=== PATIENT | female | born 1970 | race Caucasian/White ===

== ENCOUNTER 2019-01-29 18:07 | Emergency (ER) | payer OTHER, SELFPAY ==
--- OUTSIDE RECORDS SUMMARY | 2019-01-29 18:08 | XMS REPORT ---
:1970 Author Organization [facility] Address [address] [place] [address] Dr. Corona [address] [place] [address] Care Team Providers Name Role Phone Unavailable Unavailable Unavailable Problems This patient has no known problems. Allergies, Adverse Reactions, Alerts This patient has no known allergies or adverse reactions. Medications This patient has no known medications.
--- NOTE | 2019-01-29 19:35 | RAD REPORT ---
EXAM DESCRIPTION: USExtremjerry Venous Uni Ltd01/29/2019 7:26 pm CLINICAL HISTORY: left leg pain COMPARISON: None. FINDINGS: Left common femoral, superficial femoral, popliteal and posterior tibial veins are compre ssible and demonstrate augmentation. Doppler demonstrates good flow. IMPRESSION: No evidence of deep venous thrombosis involving the left lower extremity.
[2019-01-29] MEDS ORDERED: HYDROCODONE/APAP 7.5/325 MG TAB ONE (19:55)
--- NOTE | 2019-01-29 20:19 | EDPHYS ---
Physician Documentation [facility] Name: Estella Mina Age: 48 yrs Sex: Female : 1970 Arrival Date: 01/29/2019 Time: 18:09 Bed 5 Private MD: ED Physician Abdi Mullen HPI: 01/29 19:50 This 48 yrs old Female presents to ER via Ambulatory with complaints of Leg jr8 Pain. 19:50 The patient presents with pain. The complaints affect the posterior aspect of right jr8 knee, medial aspect of right thigh, medial aspect of right knee and medial aspect of right calf. Context: The problem was sustained at an unknown site, resulted from an unknown cause, the patient can fully bear weight. Onset: The symptoms/episode began/occurred gradually, 3 week(s) ago, and became worse and became persistent. Modifying factors: The symptoms are alleviated by nothing. the symptoms are aggravated by movement, weight bearing, bending knee. Associated signs and symptoms: The patient has no apparent associated signs or symptoms. Severity of symptoms: At their worst the symptoms were moderate, in the emergency department the symptoms are unchanged. The patient has not experienced similar symptoms in the past. The patient has not recently seen a physician. 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 - Social history:: Smoking status: Patient/guardian denies using tobacco. - Ebola Screening: : Patient denies travel to an Ebola-affected area in the 21 days before illness onset. ROS: 19:50 ENT: Negative for injury, pain, and discharge, Neck: Negative for injury, pain, and jr8 swelling, Cardiovascular: Negative for chest pain, palpitations, and edema, Respiratory: Negative for shortness of breath, cough, wheezing, and pleuritic chest pain, Abdomen/GI: Negative for abdominal pain, nausea, vomiting, diarrhea, and constipation, Back: Negative for injury and pain, Skin: Negative for injury, rash, and discoloration, Neuro: Negative for headache, weakness, numbness, tingling, and seizure. 19:50 MS/extremity: Positive for decreased range of motion, pain, tenderness, of the left leg. Exam: 19:50 Eyes: Pupils equal round and reactive to light, extra-ocular motions intact. Lids and jr8 lashes normal. Conjunctiva and sclera are non-icteric and not injected. Cornea within normal limits. Periorbital areas with no swelling, redness, or edema. ENT: Nares patent. No nasal discharge, no septal abnormalities noted. Tympanic membranes are normal and external auditory canals are clear. Oropharynx with no redness, swelling, or masses, exudates, or evidence of obstruction, uvula midline. Mucous membranes moist. Neck: Trachea midline, no thyromegaly or masses palpated, and no cervical lymphadenopathy. Supple, full range of motion without nuchal rigidity, or vertebral point tenderness. No Meningismus. Cardiovascular: Regular rate and rhythm with a normal S1 and S2. No gallops, murmurs, or rubs. Normal PMI, no JVD. No pulse deficits. Respiratory: Lungs have equal breath sounds bilaterally, clear to auscultation and percussion. No rales, rhonchi or wheezes noted. No increased work of breathing, no retractions or nasal flaring. Abdomen/GI: Soft, non-tender, with normal bowel sounds. No distension or tympany. No guarding or rebound. No evidence of tenderness throughout. Back: No spinal tenderness. No costovertebral tenderness. Full range of motion. Skin: Warm, dry with normal turgor. Normal color with no rashes, no lesions, and no evidence of cellulitis. Neuro: Awake and alert, GCS 15, oriented to person, place, time, and situation. Cranial nerves II-XII grossly intact. Motor strength 5/5 in all extremities. Sensory grossly intact. Cerebellar exam normal. Normal gait. 19:50 Musculoskeletal/extremity: Extremities: grossly normal except: noted in the left leg: pain, tenderness, to anterior and medial aspect of knee along with medal distal thigh and proximal medial calf, ROM: intact in all extremities, Circulation is intact in all extremities. Sensation intact. DVT Exam: negative Homans' sign noted on exam, no appreciated bluish discoloration, no erythema, no increased warmth, pain, that is mild, of the left leg, tenderness, that is mild, of the left leg, Calves: have equal circumference. Vital Signs: 18:13 BP 165 / 102; Pulse 114; Resp 20; Temp 98.0(O); Pulse Ox 95% on R/A; Weight 140.16 kg aj1 (R); Height 5 ft. 4 in. (162.56 cm) (R); 20:39 BP 139 / 87; Pulse 91; Resp 17 S; Pulse Ox 95% on R/A; jd3 18:13 Body Mass Index 53.04 (140.16 kg, 162.56 cm) aj1 MDM: 18:51 Patient medically screened. jr8 20:17 Data reviewed: vital signs, nurses notes, radiologic studies, plain films, ultrasound. jr8 Data interpreted: Pulse oximetry: on room air is 95 %. Interpretation: normal. Counseling: I had a detailed discussion with the patient and/or guardian regarding: the historical points, exam findings, and any diagnostic results supporting the discharge/admit diagnosis, radiology results, the need for outpatient follow up, a orthopedic surgeon, to return to the emergency department if symptoms worsen or persist or if there are any questions or concerns that arise at home. ED course: Discussed with patient no acute radiologic findings on plain film or US. Continue medrol dose pack and NSAID at home. If not better in a couple of weeks to f/u with orthopedics at that time. Patient good with this plan . 01/29 19:02 Order name: XRAY Knee LEFT 3 view; Complete Time: 21:50 [facility] 01/29 19:02 Order name: US Extremity Venous Unilateral Ltd; Complete Time: 19:52 jr8 Administered Medications: 19:48 Drug: [place] (7.5 mg-325 mg) 1 tabs Route: PO; jd3 20:37 Follow up: Response: No adverse reaction jd3 Disposition: 01/29/19 20:19 Discharged to Home. Impression: Pain in right knee. - Condition is Stable. - Discharge Instructions: Joint Pain, Arthritis, Knee Pain. - Medication Reconciliation Form, Thank You Letter, Antibiotic Education, Prescription Opioid Use form. - Follow up: Private Physician; When: 10 - 14 days; Reason: Recheck today's complaints, Continuance of care, Re-evaluation by your physician. - Problem is new. - Symptoms have improved. Addendum: 01/31/2019 02:07 Co-signature as Attending Physician, Abdi Mullen MD. g s Signatures: Dispatcher [employer] Michelle Omalley RN RN aj1 Zefeirno Fung PA PA jr8 Abdi Mullen MD MD gs Isaak Hussein RN RN jd3 Corrections: (The following items were deleted from the chart) 01/29 20:43 20:19 01/29/2019 20:19 Discharged to Home. Impression: Pain in right knee. Condition is jd3 Stable. Forms are Medication Reconciliation Form, Thank You Letter, Antibiotic Education, Prescription Opioid Use. Follow up: Private Physician; When: 10 - 14 days; Reason: Recheck today's complaints, Continuance of care, Re-evaluation by your physician. Problem is new. Symptoms have improved. jr8
--- NOTE | 2019-01-29 20:19 | ER ---
Nurse's Notes [facility] Name: Estella Mina Age: 48 yrs Sex: Female : 1970 Arrival Date: 01/29/2019 Time: 18:09 Bed 5 Private MD: Diagnosis: Pain in right knee Presentation: 01/29 18:09 Presenting complaint: Patient states: She has been having pain in the left leg for the aj1 past 8 days. Today while she was walking she fell because her leg gave out from under her. Patient reports pain behind left knee that radiates to the rest of the leg. Transition of care: patient was not received from another setting of care. Onset of symptoms was January 21, 2019. Risk Assessment: Do you want to hurt yourself or someone else? Patient reports no desire to harm self or others. Initial Sepsis Screen: Does the patient meet any 2 criteria? HR > 90 bpm. No. Patient's initial sepsis screen is negative. Does the patient have a suspected source of infection? No. Patient's initial sepsis screen is negative. Care prior to arrival: None. 18:09 Method Of Arrival: Ambulatory aj1 18:09 Acuity: NATHANAEL 3 aj1 Triage Assessment: 18:13 General: Appears in no apparent distress. uncomfortable, Behavior is cooperative, aj1 anxious, crying. Pain: Complains of pain in left leg. NETWORK INTERN: 20:43 LMP N/A - Irregular menses jd3 Historical: - Allergies: 18:13 No Known Allergies; aj1 - Home Meds: 18:13 Hydrocodone-Acetaminophen Oral [Active]; aj1 - PMHx: 18:13 "Blood clot in R lung"; "enlarged heart"; Anxiety; Depression; Migraines; mitral valve aj1 prolapse; - PSHx: 18:13 cyst removed; Hernia repair; aj1 - Immunization history:: Flu vaccine is up to date. - Social history:: Smoking status: Patient/guardian denies using tobacco. - Ebola Screening: : Patient denies travel to an Ebola-affected area in the 21 days before illness onset. Screenin:15 Abuse screen: Denies threats or abuse. Denies injuries from another. Nutritional aj1 screening: No deficits noted. Tuberculosis screening: No symptoms or risk factors identified. 20:42 Fall Risk Fall in past 12 months (25 points). Total [place] Fall Scale indicates Low Risk jd3 Score (25-44 pts). Fall prevention measures have been instituted. Side Rails Up X 2 Placed close to Nursing Station Frequent Obs/Assesments occuring Family Present and informed to notify staff if they need to leave bedside. Assessment: 18:15 General: Appears in no apparent distress. uncomfortable, Behavior is cooperative, aj1 anxious, crying. Pain: Complains of pain in posterior aspect of left knee Pain radiates to left leg. Neuro: Level of Consciousness is awake, alert, obeys commands. Cardiovascular: Patient's skin is warm and dry. Respiratory: Airway is patent Respiratory effort is even, unlabored, Respiratory pattern is regular, symmetrical. GI: No signs and/or symptoms were reported involving the gastrointestinal system. : No signs and/or symptoms were reported regarding the genitourinary system. EENT: No signs and/or symptoms were reported regarding the EENT system. Derm: Skin is pink, warm \\T\\ dry. normal. Musculoskeletal: Circulation, motion, and sensation intact. 19:30 Reassessment: Patient appears in no apparent distress at this time. No changes from jd3 previously documented assessment. Patient and/or family updated on plan of care and expected duration. Pain level reassessed. Patient is alert, oriented x 3, equal unlabored respirations, skin warm/dry/pink. 20:39 Reassessment: Patient appears in no apparent distress at this time. Patient and/or jd3 family updated on plan of care and expected duration. Pain level reassessed. Patient is alert, oriented x 3, equal unlabored respirations, skin warm/dry/pink. Patient states feeling better. Vital Signs: 18:13 BP 165 / 102; Pulse 114; Resp 20; Temp 98.0(O); Pulse Ox 95% on R/A; Weight 140.16 kg aj1 (R); Height 5 ft. 4 in. (162.56 cm) (R); 20:39 BP 139 / 87; Pulse 91; Resp 17 S; Pulse Ox 95% on R/A; jd3 18:13 Body Mass Index 53.04 (140.16 kg, 162.56 cm) aj1 ED Course: 18:09 Patient arrived in ED. aj1 18:12 Triage completed. aj1 18:13 Arm band placed on. aj1 18:15 Patient has correct armband on for positive identification. Bed in low position. Call aj1 light in reach. Side rails up X 1. 18:15 No provider procedures requiring assistance completed. aj1 18:38 Zeferino Fung PA is PHCP. jr8 18:38 Abdi Mullen MD is Attending Physician. jr8 19:21 Radiology exam delayed due to pt in ultrasound. az 19:27 US Extremity Venous Unilateral Ltd In Process Unspecified. EDMS 19:39 Isaak Hussein, RN is Primary Nurse. jd3 20:13 XRAY Knee LEFT 3 view In Process Unspecified. EDMS 20:42 Patient did not have IV access during this emergency room visit. jd3 Administered Medications: 19:48 Drug: [place] (7.5 mg-325 mg) 1 tabs Route: PO; jd3 20:37 Follow up: Response: No adverse reaction jd3 Outcome: 20:19 Discharge ordered by MD. jr8 20:40 Discharged to home ambulatory, with family. jd3 20:40 Condition: stable 20:40 Discharge instructions given to patient, family, Instructed on discharge instructions, follow up and referral plans. Demonstrated understanding of instructions, follow-up care. 20:43 Patient left the ED. jd3 Signatures: Dispatcher [employer] ED[facility] Michelle Branch RN RN aj1 Zeferino Fung PA PA jr8 Isaak Hussein, LAYNE RN jd3 Vicky Yanez Corrections: (The following items were deleted from the chart) 19:51 18:30 Reassessment: Patient appears in no apparent distress at this time. No changes jd3 from previously documented assessment. Patient and/or family updated on plan of care and expected duration. Pain level reassessed. Patient is alert, oriented x 3, equal unlabored respirations, skin warm/dry/pink. jd3
--- NOTE | 2019-01-29 20:32 | RAD REPORT ---
EXAM DESCRIPTION: RAD - Knee Left 3 View - 01/29/2019 8:13 pm CLINICAL HISTORY: Left knee pain FINDINGS: No fracture or dislocation is seen. Mild medial joint space narrowing. Small patellar spurs. Diffuse edema within soft tissues
[2019-01-29 22:03] VITALS: BP 139/87; O2SAT 95
[2019-01-29 22:04] VITALS: TEMP 98
== END 2019-01-29 20:43 | disposition home or self-care (01) ==
LOC: ER 18:07
DX: M25.562 Pain in left knee (principal); F41.9 Anxiety disorder, unspecified; F32.9 Major depressive disorder, single episode, unspecified
CPT/HCPCS: 93971; 99283

== ENCOUNTER 2019-05-03 22:24 | Emergency (ER) | payer SELFPAY ==
--- OUTSIDE RECORDS SUMMARY | 2019-05-03 22:26 | XMS REPORT | Summary of Care ---
:1970 Author Organization [facility] Address [address] [place] [address] Care Team Providers Name Role Phone Osito Justice MD Primary Care Provider Reason for Visit Reason Comments Refill Request Encounter Details Date Type Department Care Team Description 04/23/2019 Refill [facility] Family Medicine Osito Justice MD Refill Request - [address] [phone] [place] [phone] Allergies No Known Allergiesdocumented as of this encounter (statuses as of 04/24/2019) Medications Medication Sig Dispensed Refills Start Date End Date Status aspirin 81 mg Take 81 mg by 0 Active chewable tablet mouth daily. LORazepam 1 mg TAKE ONE (1) 60 tablet 5 06/21/2017 Active tablet TABLET(S) BY MOUTH TWICE A DAY NEEDED FOR ANXIETY OR AGITATION. HYDROcodone-acetamin TAKE ONE (1) 120 tablet 0 06/21/2017 Active ophen 10-325 mg TABLET(S) BY tablet MOUTH EVERY SIX HOURS NEEDED FOR PAIN. baclofen 10 mg Take 1 tablet 30 tablet 5 06/21/2017 Active tablet by mouth daily. zolpidem 10 mg TAKE ONE (1) 30 tablet 5 02/07/2018 Active tablet TABLET(S) BY MOUTH ONCE A DAY AT BEDTIME NEEDED FOR INSOMNIA. acyclovir 800 mg Take 1 tablet 50 tablet 2 04/09/2018 Active tablet by mouth 5 (five) times daily. Milnacipran As directed 1 Package 0 06/27/2018 Active (SAVELLA) 12.5 mg (5)-25 mg(8)-50 mg(42) DsPk BACLOFEN 10 mg TAKE ONE (1) 90 tablet 3 09/24/2018 Active tablet TABLET(S) BY MOUTH ONCE A DAY. indomethacin 25 mg TAKE ONE (1) 5 08/14/2018 Active capsule CAPSULE(S) BY MOUTH THREE TIMES A DAY WITH MEALS. CITALOPRAM 40 mg TAKE ONE (1) 30 tablet 4 10/22/2018 Active tablet TABLET(S) BY MOUTH ONCE A DAY. topiramate 25 mg Take 1 tablet 30 tablet 5 12/19/2018 Active tabletIndications: by mouth Migraine without daily. status migrainosus, not intractable, unspecified migraine type clarithromycin Take 1 tablet 14 tablet 0 12/19/2018 Active (BIAXIN) 500 mg by mouth every tabletIndications: 12 (twelve) Bronchitis hours. ZOLPIDEM 10 mg TAKE ONE (1) 30 tablet 5 03/25/2019 Active tabletIndications: TABLET(S) BY Insomnia, MOUTH AT unspecified type BEDTIME NEEDED FOR INSOMNIA. LORAZEPAM 1 mg TAKE ONE (1) 60 tablet 0 04/22/2019 Active tabletIndications: TABLET(S) BY Anxiety MOUTH TWICE A DAY NEEDED FOR ANXIETY OR AGITATION. INDOMETHACIN 25 mg TAKE ONE (1) 90 capsule 3 04/24/2019 Active capsuleIndications: CAPSULE(S) BY Chronic back pain, MOUTH THREE unspecified back TIMES A DAY location, WITH MEALS. unspecified back pain laterality HYDROCODONE-ACETAMIN TAKE ONE (1) 120 tablet 0 04/24/2019 Active OPHEN 10-325 mg TABLET(S) BY tabletIndications: MOUTH EVERY Chronic back pain, SIX HOURS unspecified back NEEDED FOR location, PAIN. unspecified back pain laterality INDOMETHACIN 25 mg TAKE ONE (1) 90 capsule 4 09/24/2018 Discontinued capsule CAPSULE(S) BY 9 MOUTH THREE TIMES A DAY WITH MEALS. HYDROcodone-acetamin TAKE ONE (1) 120 tablet 0 03/26/2019 Discontinued ophen 10-325 mg TABLET(S) BY 9 tabletIndications: MOUTH EVERY Chronic back pain, SIX HOURS unspecified back NEEDED FOR location, PAIN. unspecified back pain laterality documented as of this encounter (statuses as of 04/24/2019) Active Problems Problem Noted Date Herpes 04/09/2018 Esophagitis 03/31/2017 Anxiety 09/08/2015 Edema 09/08/2015 Fibromyalgia 09/08/2015 Insomnia 09/08/2015 documented as of this encounter (statuses as of 04/24/2019) Immunizations Name Administration Dates Next Due Influenza Virus Vaccine 05/26/2018 documented as of this encounter Social History Tobacco Use Types Packs/Day Years Used Date Never Smoker Smokeless Tobacco: Never Used Alcohol Use Drinks/Week oz/Week Comments No Sex Assigned at Date Recorded Not on file Job Start Date Occupation Industry Not on file Not on file Not on file Travel History Travel Start Travel End No recent travel history available. documented as of this encounter Last Filed Vital Signs Not on filedocumented in this encounter Plan of Treatment Date Type Specialty Care Team Description 05/06/2019 Office Visit Family Medicine Osito Justice MD [address] [place] [phone] Health Maintenance Due Date Last Done Comments DTaP,Tdap,and Td Vaccines (1 - 1990 Tdap) PAP SMEAR 1992 MAMMOGRAM 2011 INFLUENZA VACCINE 05/26/2019 05/26/2018 PNEUMOCOCCAL 0-64 YEARS COMBINED Aged Out No longer eligible based on SERIES patient's age to complete this topic documented as of this encounter Results Not on filedocumented in this encounter Visit Diagnoses Diagnosis Chronic back pain, unspecified back location, unspecified back pain laterality documented in this encounter
--- OUTSIDE RECORDS SUMMARY | 2019-05-03 22:26 | XMS REPORT | Summary of Care ---
:1970 Author Organization [facility] Address [address] [place] [address] Care Team Providers Name Role Phone Osito Justice MD Primary Care Provider Reason for Visit Reason Comments Refill Request Encounter Details Date Type Department Care Team Description 04/20/2019 Refill [facility] Family Medicine Osito Justice MD Refill Request - [address] [phone] [place] [phone] Allergies No Known Allergiesdocumented as of this encounter (statuses as of 04/22/2019) Medications Medication Sig Dispensed Refills Start Date [...] (SAVELLA) 12.5 mg (5)-25 mg(8)-50 mg(42) DsPk INDOMETHACIN 25 mg TAKE ONE (1) 90 capsule 4 09/24/2018 Active capsule CAPSULE(S) BY MOUTH THREE TIMES A DAY WITH MEALS. BACLOFEN 10 mg TAKE ONE (1) 90 [...] AT unspecified type BEDTIME NEEDED FOR INSOMNIA. HYDROcodone-acetamin TAKE ONE (1) 120 tablet 0 03/26/2019 Active ophen 10-325 mg TABLET(S) BY tabletIndications: MOUTH EVERY Chronic back pain, SIX HOURS unspecified back NEEDED FOR location, PAIN. unspecified back pain laterality LORAZEPAM 1 mg TAKE ONE (1) 60 tablet 0 04/22/2019 Active tabletIndications: TABLET(S) BY Anxiety MOUTH TWICE A DAY NEEDED FOR ANXIETY OR AGITATION. LORAZEPAM 1 mg TAKE ONE (1) 60 tablet 1 02/19/2019 Discontinued tabletIndications: TABLET(S) BY 9 Anxiety MOUTH TWICE A DAY NEEDED FOR ANXIETY OR AGITATION. documented as of this encounter (statuses as of 04/22/2019) Active Problems Problem Noted Date Herpes 04/09/2018 Esophagitis 03/31/2017 Anxiety 09/08/2015 Edema 09/08/2015 Fibromyalgia 09/08/2015 Insomnia 09/08/2015 documented as of this encounter (statuses as of 04/22/2019) Immunizations Name Administration Dates Next Due Influenza [...] Office Visit Family Medicine Osito Justice MD [address] [place] [phone] Health Maintenance Due Date Last Done Comments DTaP,Tdap,and Td Vaccines (1 - 1990 Tdap) PAP SMEAR 1992 MAMMOGRAM 2011 INFLUENZA VACCINE 05/26/2019 05/26/2018 PNEUMOCOCCAL 0-64 YEARS COMBINED Aged Out No longer eligible based on SERIES patient's age to complete this topic documented as of this encounter Results Not on filedocumented in this encounter Visit Diagnoses Diagnosis Anxiety Anxiety state, unspecified documented in this encounter
--- OUTSIDE RECORDS SUMMARY | 2019-05-03 22:26 | XMS REPORT ---
:1970 [facility] Address [address] [place] [address] Dr. Corona [address] [place] [id number] Care Team Providers Name Role Phone Unavailable Unavailable Unavailable Problems This patient has no known problems. Allergies, Adverse Reactions, Alerts This patient has no known allergies or adverse reactions. Medications This patient has no known medications.
[2019-05-03 23:18] LABS: Absolute Lymphocytes (CBC) 2.9 K/uL (0.7-4.9); Basophils % 0.9 % (0-1.3); Hematocrit 37.6 % (36.0-45.0); Lymphocytes % 40.1 % (15.3-44.8); MPV 11.1 fL (7.6-11.3); RBC Red Blood Cell Count 4.12 M/uL (3.86-4.86)
[2019-05-03 23:19] LABS: Protime INR 0.89
[2019-05-03] MEDS ORDERED: MORPHINE 2 MG/ML SYR ONE (23:21)
[2019-05-03] MEDS ORDERED: ONDANSETRON 4 MG/2 ML VIAL ONE (23:21)
[2019-05-03 23:30] LABS: ALT/SGPT 32 U/L (12-78); AST/SGOT 22 U/L (15-37); Albumin 3.1 g/dL (3.4-5.0); Alkaline Phosphatase 62 U/L (45-117); BUN Blood Urea Nitrogen 11 mg/dL (7-18); Bicarbonate 27 mmol/L (21-32); Bilirubin Direct 0.1 mg/dL (0-0.2); Bilirubin Total 0.2 mg/dL (0.2-1.0); Glucose Level 115 mg/dL (74-106); Magnesium 2.3 mg/dL (1.8-2.4); NT PRO-BNP 73 pg/mL (<125); Potassium 4.2 mmol/L (3.5-5.1); Protein, Total 6.7 g/dL (6.4-8.2); Sodium Level 143 mmol/L (136-145); Troponin (Emerg Dept Use Only) < 0.02 ng/mL (0.0-0.045)
--- NOTE | 2019-05-04 02:15 | ER ---
Nurse's Notes [facility] Name: Estella Mina Age: 48 yrs Sex: Female : 1970 Arrival Date: 05/03/2019 Time: 22:31 Bed 6 Private MD: Diagnosis: Chest pain Presentation: 05/03 22:32 Presenting complaint: Patient states: left chest wall pain that radiates to left jaw ak1 and left arm. pt c/o SOB and nausea. pt denies vomiting. pt was seen by Cardiology Dr. Diaz and was told "I had a minor heart attack" pt stated they could not complete a troponin at the office. pt called Dr. Gonzalez on his cell phone and was told to just come to the ER. pt took her 0.4mg nitro SL and EMS administered 324mg aspirin. EMS reported normal Sinus rhythm. Transition of care: patient was not received from another setting of care. Onset of symptoms was May 03, 2019 at 22:00. Risk Assessment: Do you want to hurt yourself or someone else? Patient reports no desire to harm self or others. Initial Sepsis Screen: Does the patient meet any 2 criteria? No. Patient's initial sepsis screen is negative. Does the patient have a suspected source of infection? No. Patient's initial sepsis screen is negative. Care prior to arrival: None. 22:32 Method Of Arrival: EMS: [facility] ak1 22:32 Acuity: NATHANAEL 3 ak1 Triage Assessment: 22:37 General: Appears in no apparent distress. Behavior is calm, cooperative. Pain: ak1 Complains of pain in anterior aspect of left upper chest and mid-sternal area Pain radiates to left arm Pain currently is 4 out of 10 on a pain scale. EENT: No signs and/or symptoms were reported regarding the EENT system. Neuro: Level of Consciousness is awake, alert, obeys commands, Oriented to person, place, time, situation, Electric Organ Assembler And Checker are equal bilaterally Moves all extremities. Gait is steady, Speech is normal, Facial symmetry appears normal. Cardiovascular: Reports chest pain, nausea, shortness of breath, since 2200 Denies diaphoresis, fatigue, lightheadedness, palpitations, syncope, vomiting, Heart tones S1 S2 Capillary refill < 3 seconds. Respiratory: Reports shortness of breath since 2200 Airway is patent Trachea midline Respiratory effort is even, unlabored, Respiratory pattern is regular, symmetrical, Breath sounds are clear bilaterally. GI: No signs and/or symptoms were reported involving the gastrointestinal system. : No signs and/or symptoms were reported regarding the genitourinary system. Derm: No signs and/or symptoms reported regarding the dermatologic system. Musculoskeletal: No signs and/or symptoms reported regarding the musculoskeletal system. 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:10 LMP N/A - ablation 5 years ago rr5 Historical: - Allergies: 05/03 22:37 No Known Allergies; ak1 - Home Meds: 22:37 topiramate 25 mg oral CSpX 1 cap once daily [Active]; citalopram 40 mg tab 1 tab once ak1 daily for Anxiety with Depression [Active]; indomethacin 25 mg Oral cap 1 cap 3 times per day [Active]; zolpidem 10 mg oral tab 1 tab at bedtime [Active]; - PMHx: 22:37 "Blood clot in R lung"; "enlarged heart"; Anxiety; Depression; Migraines; mitral valve ak1 prolapse; - PSHx: 22:37 cyst removed; Hernia repair; Cholecystectomy; uterian ablasion; ak1 - Immunization history:: Adult Immunizations unknown. - Social history:: Smoking status: unknown. - Ebola Screening: : No symptoms or risks identified at this time. Screenin:39 Abuse screen: Denies threats or abuse. Denies injuries from another. Nutritional ak1 screening: No deficits noted. Tuberculosis screening: No symptoms or risk factors identified. Fall Risk None identified. Assessment: 22:39 Pain: Pain began 1 hour ago. ak1 22:46 Reassessment: Patient appears in no apparent distress at this time. No changes from ak1 previously documented assessment. Patient and/or family updated on plan of care and expected duration. Pain level reassessed. Patient is alert, oriented x 3, equal unlabored respirations, skin warm/dry/pink. see triage assessment. Patient states feeling better. 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 22:58 Reassessment: family at bedside. pt texting on phone. Fletcher Rodas RN at bedside for US ak1 guided IV. . 05/04 00:06 Reassessment: pt requested and given more blankets. pt informed of EKG and troponin ak1 results. pt informed of wait for DR. Almonte to review labs. 01:14 Reassessment: Patient appears in no apparent distress at this time. Patient and/or ak1 family updated on plan of care and expected duration. Pain level reassessed. pt c/o back pain after being woken up for EKG and repeat troponin, Dr. Almonte notified of back pain with no new orders at this time. pt resp even and unlabored. family at bedside. 01:15 Reassessment: pt removed blood pressure cuff, stating she could not sleep with it on. ak1 02:13 Reassessment: Patient appears in no apparent distress at this time. Patient is alert, rr5 oriented x 3, equal unlabored respirations, skin warm/dry/pink. discharge instruction given and explained without complaints made Patient states feeling better. Patient states symptoms have improved. Vital Signs: 05/03 22:31 BP 132 / 76; Pulse 79; Resp 18; Temp 97; Pulse Ox 100% on R/A; Weight 145.15 kg (R); ak1 Height 5 ft. 4 in. (162.56 cm) (R); Pain 4/10; 23:22 BP 106 / 59; Pulse 79; Resp 18; Pulse Ox 100% on R/A; ak1 08 02:10 BP 119 / 79; Pulse 69; Resp 16; Pulse Ox 99% on R/A; rr5 08/ 22:31 Body Mass Index 54.93 (145.15 kg, 162.56 cm) ak1 ED Course: 05/03 22:31 Patient arrived in ED. ak1 22:31 Arm band placed on Patient placed in an exam room, on a stretcher, on monitoring analyst, ak1 on pulse oximetry, Patient notified of wait time. 22:35 Triage completed. ak1 22:39 Patient has correct armband on for positive identification. Placed in gown. Bed in low ak1 position. Call light in reach. Side rails up X 1. Side rails up X2. threat monitoring analyst on. Pulse ox on. NIBP on. 22:39 Patient maintains SpO2 saturation greater than 95% on room air. ak1 22:44 Sonia Angulo, RN is Primary Nurse. ak1 22:47 EKG done, by ED staff. ak1 23:07 XRAY Chest (1 view) Sent. ak1 23:10 Butch Almonte MD is Attending Physician. pkl 23:12 Inserted saline lock: 22 gauge in right forearm, using aseptic technique. Blood la1 collected. 23:13 XRAY Chest (1 view) In Process Unspecified. EDLA 05/04 01:15 Repeat lab(s) drawn. by me, sent to lab. EKG done, by ED staff, reviewed by Butch Almonte MD. ak1 02:21 No provider procedures requiring assistance completed. IV discontinued, intact, rr5 bleeding controlled, No redness/swelling at site. Pressure dressing applied. Administered Medications: 05/03 23:26 Drug: morphine 2 mg {Note: RASS score of 0.} Route: IVP; Site: right antecubital; [facility] 05/04 01:05 Follow up: Response: Pain is decreased; RASS: Alert and Calm (0) ak1 05/03 23:26 Drug: Zofran 4 mg Route: IVP; Site: right antecubital; [facility] 05/04 01:04 Follow up: Response: No adverse reaction ak1 Outcome: 02:17 Discharge ordered by . pkshanique 02:21 Discharged to home ambulatory, with family. rr5 02:21 Condition: stable 02:21 Discharge instructions given to patient, Instructed on discharge instructions, follow up and referral plans. Demonstrated understanding of instructions, follow-up care. 02:28 Patient left the ED. rr5 Signatures: Dispatcher [employer] [facility] Butch Almonte MD MD pkl Attema, Lee RN RN la1 Sonia Angulo RN RN ak1 Isaak Hussein RN RN jd3 Roque, Raymond RN RN rr5
--- NOTE | 2019-05-04 02:16 | EDPHYS ---
Physician Documentation [facility] Name: Estella Mina Age: 48 yrs Sex: Female : 1970 Arrival Date: 05/03/2019 Time: 22:31 Bed 6 Private MD: ED Physician Butch Almonte HPI: 05/03 23:10 This 48 yrs old Female presents to ER via EMS with complaints of Chest Pain. pkl 23:17 The patient or guardian reports chest pain that is located primarily in the substernal pkl area. Onset: just prior to arrival. The pain radiates to the left arm, left jaw. Associated signs and symptoms: Pertinent positives: nausea, shortness of breath. The chest pain is described as a pressure. Was seen in Dr. Diaz ( Facility Environmental Technician ) office 2 days for similar complaints. 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 LMP N/A - ablation 5 years ago rr5 Historical: - Allergies: 05/03 22:37 No Known Allergies; ak1 - Home Meds: 22:37 topiramate 25 mg oral CSpX 1 cap once daily [Active]; citalopram 40 mg tab 1 tab once ak1 daily for Anxiety with Depression [Active]; indomethacin 25 mg Oral cap 1 cap 3 times per day [Active]; zolpidem 10 mg oral tab 1 tab at bedtime [Active]; - PMHx: 22:37 "Blood clot in R lung"; "enlarged heart"; Anxiety; Depression; Migraines; mitral valve ak1 prolapse; - PSHx: 22:37 cyst removed; Hernia repair; Cholecystectomy; uterian ablasion; ak1 - Immunization history:: Adult Immunizations unknown. - Social history:: Smoking status: unknown. - Ebola Screening: : No symptoms or risks identified at this time. ROS: 23:17 Eyes: Negative for injury, pain, redness, and discharge, ENT: Negative for injury, pkl pain, and discharge, Neck: Negative for injury, pain, and swelling. 23:17 Cardiovascular: Positive for chest pain. 23:17 Respiratory: Positive for shortness of breath. 23:17 Abdomen/GI: Negative for abdominal pain, nausea, vomiting, and diarrhea. 23:17 Back: Negative for acute changes. 23:17 : Negative for urinary symptoms. 23:17 MS/extremity: Negative for acute changes. 23:17 Skin: Negative for rash. 23:17 Neuro: Negative for altered mental status. Exam: 23:17 Head/Face: Normocephalic, atraumatic. Eyes: Pupils equal round and reactive to light, pkl extra-ocular motions intact. Lids and lashes normal. Conjunctiva and sclera are non-icteric and not injected. Cornea within normal limits. Periorbital areas with no swelling, redness, or edema. ENT: Nares patent. No nasal discharge, no septal abnormalities noted. Tympanic membranes are normal and external auditory canals are clear. Oropharynx with no redness, swelling, or masses, exudates, or evidence of obstruction, uvula midline. Mucous membranes moist. Neck: Trachea midline, no thyromegaly or masses palpated, and no cervical lymphadenopathy. Supple, full range of motion without nuchal rigidity, or vertebral point tenderness. No Meningismus. Chest/axilla: Normal chest wall appearance and motion. Nontender with no deformity. No lesions are appreciated. Cardiovascular: Regular rate and rhythm with a normal S1 and S2. No gallops, murmurs, or rubs. Normal PMI, no JVD. No pulse deficits. Respiratory: Lungs have equal breath sounds bilaterally, clear to auscultation and percussion. No rales, rhonchi or wheezes noted. No increased work of breathing, no retractions or nasal flaring. Abdomen/GI: Soft, non-tender, with normal bowel sounds. No distension or tympany. No guarding or rebound. No evidence of tenderness throughout. Back: No spinal tenderness. No costovertebral tenderness. Full range of motion. Skin: Warm, dry with normal turgor. Normal color with no rashes, no lesions, and no evidence of cellulitis. MS/ Extremity: Pulses equal, no cyanosis. Neurovascular intact. Full, normal range of motion. Neuro: Awake and alert, GCS 15, oriented to person, place, time, and situation. Cranial nerves II-XII grossly intact. Motor strength 5/5 in all extremities. Sensory grossly intact. Cerebellar exam normal. Normal gait. Vital Signs: 22:31 BP 132 / 76; Pulse 79; Resp 18; Temp 97; Pulse Ox 100% on R/A; Weight 145.15 kg (R); ak1 Height 5 ft. 4 in. (162.56 cm) (R); Pain 4/10; 23:22 BP 106 / 59; Pulse 79; Resp 18; Pulse Ox 100% on R/A; ak1 05/04 02:10 BP 119 / 79; Pulse 69; Resp 16; Pulse Ox 99% on R/A; rr5 05/03 22:31 Body Mass Index 54.93 (145.15 kg, 162.56 cm) [facility] MDM: 05/03 23:10 Patient medically screened. pkl 05/04 02:13 Data reviewed: vital signs, nurses notes, lab test result(s), EKG, radiologic studies, pkl plain films. ED course: Patient feeling better. Discussed lab. and imaging studies with patient. Advised to follow up with Dr. Diaz ( Facility Environmental Technician ) in 2 to 3 days. To return if necessary. Patient instruction.. 08 22:44 Order name: Basic Metabolic Panel; Complete Time: 00:42 [facility] 05/03 22:44 Order name: CBC with Diff; Complete Time: 00:42 [facility] 05/03 22:44 Order name: LFT's; Complete Time: 00:42 md05/03 22:44 Order name: Magnesium; Complete Time: 00:42 [facility] 05/03 22:44 Order name: NT PRO-BNP; Complete Time: 00:42 [facility] 05/03 22:44 Order name: PT-INR; Complete Time: 00:42 md05/03 22:44 Order name: Troponin (emerg Dept Use Only); Complete Time: 00:42 [facility] 05/03 22:44 Order name: XRAY Chest (1 view) [facility] 05/03 22:44 Order name: EKG; Complete Time: 22:48 md05/03 22:44 Order name: Cardiac monitoring; Complete Time: 22:44 [facility] 05/04 01:04 Order name: Troponin (emerg Dept Use Only); Complete Time: 02:09 [facility] 05/04 01:04 Order name: EKG; Complete Time: 01:05 [facility] 05/03 22:44 Order name: EKG - Nurse/Tech; Complete Time: 22:44 [facility] 05/03 22:44 Order name: IV Saline Lock; Complete Time: 23:07 md05/03 22:44 Order name: Labs collected and sent; Complete Time: 23:07 ak1 05/03 22:44 Order name: O2 Per Protocol; Complete Time: 22:44 ak1 05/03 22:44 Order name: O2 Sat Monitoring; Complete Time: :44 ak1 05/04 01:04 Order name: EKG - Nurse/Tech; Complete Time: 01:13 ak1 Administered Medications: 05/03 23:26 Drug: morphine 2 mg {Note: RASS score of 0.} Route: IVP; Site: right antecubital; [facility] 05/04 01:05 Follow up: Response: Pain is decreased; RASS: Alert and Calm (0) ak1 05/03 23:26 Drug: Zofran 4 mg Route: IVP; Site: right antecubital; [facility] 05/04 01:04 Follow up: Response: No adverse reaction ak1 Disposition: 05/04/19 02:17 Discharged to Home. Impression: Chest pain. - Condition is Stable. - Medication Reconciliation Form, Thank You Letter, Antibiotic Education, Prescription Opioid Use form. - Follow up: Private Physician; When: 2 - 3 days; Reason: Re-evaluation by your physician. - Problem is new. - Symptoms have improved. Signatures: Dispatcher [employer] EDButch Underwood MD MD pkl Sonia Angulo RN RN ak1 Isaak Hussein RN RN jArvin Chapman RN RN rr5 Corrections: (The following items were deleted from the chart) 02:28 02:17 05/04/2019 02:17 Discharged to Home. Impression: Chest pain. Condition is Stable. rr5 Forms are Medication Reconciliation Form, Thank You Letter, Antibiotic Education, Prescription Opioid Use. Follow up: Private Physician; When: 2 - 3 days; Reason: Re-evaluation by your physician. Problem is new. Symptoms have improved. pkl
[2019-05-04 02:48] VITALS: TEMP 97
[2019-05-04 02:51] VITALS: BP 119/79; O2SAT 99
--- NOTE | 2019-05-04 07:36 | EKG ---
Test Date: 2019-05-03 Test Time: 22:37:39 Scrap Hoist Operator: TATUM MEASUREMENT RESULTS: Intervals: Rate: 74 CO: 154 QRSD: 94 QT: 408 QTc: 452 Dema: P: 64 CO: 154 QRS: 60 T: 47 INTERPRETIVE STATEMENTS: Normal sinus rhythm Normal ECG Compared to ECG 08/15/2017 02:06:37 Right-axis deviation no longer present Myocardial infarct finding no longer present Electronically Signed On 05-04-19 07:36:02 CDT by Bennett Minaya
--- NOTE | 2019-05-04 09:19 | EKG ---
Test Date: 2019-05-04 Test Time: 01:14:40 Ammunition Specialist: TATUM MEASUREMENT RESULTS: Intervals: Rate: 72 WV: 154 QRSD: 98 QT: 428 QTc: 468 [place]: P: 56 WV: 154 QRS: 75 T: 20 INTERPRETIVE STATEMENTS: Normal sinus rhythm Possible Inferior infarct, age undetermined Abnormal ECG Compared to ECG 05/03/2019 22:37:39 Myocardial infarct finding now present Electronically Signed On 05-04-19 09:19:06 CDT by Bennett Minaya
--- NOTE | 2019-05-04 12:28 | RAD REPORT ---
EXAM DESCRIPTION: RAD - Chest Single View - 05/03/2019 11:13 pm CLINICAL HISTORY: CHEST PAIN Chest pain. COMPARISON: Chest Single View dated 08/14/2017; CHEST PA AND LAT 2 VIEW dated 10/21/2015; CHEST PA AN D LAT 2 VIEW dated 10/15/2015; CHEST PA AND LAT 2 VIEW dated 10/08/2015 FINDINGS: Portable technique limits examination quality. The lungs are grossly clear. The heart is normal in size. No displaced fractures. IMPRESSION: No acute intrathoracic process suspected.
== END 2019-05-04 02:28 | disposition home or self-care (01) ==
LOC: ER 22:24
DX: R07.9 Chest pain, unspecified (principal); R11.0 Nausea; F41.9 Anxiety disorder, unspecified; F32.9 Major depressive disorder, single episode, unspecified
CPT/HCPCS: 36415; 71045; 80048; 80076; 83735; 83880; 84484; 85025; 85610; 93005; 96374; 96375; 99285; J2270; J2405

== ENCOUNTER 2019-05-05 08:56 | Emergency (ER) | payer SELFPAY ==
--- OUTSIDE RECORDS SUMMARY | 2019-05-05 08:58 | XMS REPORT ---
:1970 [facility] Address [address] [place] [address] Dr. Corona [address] [place] [id number] Care Team Providers Name Role Phone Unavailable Unavailable Unavailable Problems This patient has no known problems. Allergies, Adverse Reactions, Alerts This patient has no known allergies or adverse reactions. Medications This patient has no known medications.
[2019-05-05] MEDS ORDERED: ASPIRIN 81 MG CHEWABLE TABLET ONE (09:19)
[2019-05-05] MEDS ORDERED: NA CHLORIDE 0.9% 1,000 ML ONE (09:19)
[2019-05-05 09:52] LABS: Absolute Lymphocytes (CBC) 1.7 K/uL (0.7-4.9); Basophils % 1.1 % (0-1.3); Hematocrit 38.9 % (36.0-45.0); Lymphocytes % 29.3 % (15.3-44.8); MPV 11.2 fL (7.6-11.3); RBC Red Blood Cell Count 4.22 M/uL (3.86-4.86)
--- NOTE | 2019-05-05 09:56 | RAD REPORT ---
EXAM DESCRIPTION: RAD - Chest Single View - 05/05/2019 9:18 am CLINICAL HISTORY: Substernal chest pain COMPARISON: May 03 TECHNIQUE: AP portable chest image was obtained 0919 hours . FINDINGS: Lungs are clear. Heart and vasculature are normal. No measurable pleural effusion and no p neumothorax. No acute bony abnormality seen. No acute aortic findings suspected. IMPRESSION: No acute cardiopulmonary process. No worrisome change from comparison.
[2019-05-05 09:57] LABS: Protime INR 0.98
[2019-05-05] MEDS ORDERED: ONDANSETRON 4 MG/2 ML VIAL ONE (10:00)
[2019-05-05] MEDS ORDERED: MORPHINE 4 MG/ML SYR ONE (10:10)
[2019-05-05 10:13] LABS: ALT/SGPT 35 U/L (12-78); AST/SGOT 23 U/L (15-37); Alkaline Phosphatase 60 U/L (45-117); BUN Blood Urea Nitrogen 12 mg/dL (7-18); Bicarbonate 24 mmol/L (21-32); Bilirubin Direct 0.1 mg/dL (0-0.2); Bilirubin Total 0.4 mg/dL (0.2-1.0); Glucose Level 95 mg/dL (74-106); Magnesium 2.1 mg/dL (1.8-2.4); NT PRO-BNP 590 pg/mL (<125); Potassium 4.1 mmol/L (3.5-5.1); Protein, Total 6.6 g/dL (6.4-8.2); Sodium Level 143 mmol/L (136-145); Troponin (Emerg Dept Use Only) < 0.02 ng/mL (0.0-0.045)
[2019-05-05 10:52] LABS: Barbiturates NEGATIVE (NEGATIVE); Benzodiazepines NEGATIVE (NEGATIVE); Cocaine NEGATIVE (NEGATIVE); METHAMPHETAM NEGATIVE (NEGATIVE); Methadone NEGATIVE (NEGATIVE); Opiates NEGATIVE (NEGATIVE); Phencyclidine NEGATIVE (NEGATIVE); THC Cannibis NEGATIVE (NEGATIVE)
--- NOTE | 2019-05-05 10:53 | RAD REPORT ---
EXAM DESCRIPTION: CT - Chest For Pe Angio - 05/05/2019 10:41 am CLINICAL HISTORY: Chest pain, dyspnea COMPARISON: Portable chest same date, PE study July 2017 TECHNIQUE: Dynamically enhanced 3 mm thick images of the chest were obtained during administration o f approximately 150mL Isovue 370 IV contrast. Coronal and oblique MIP reconstruction images were gene rated and reviewed. Exam utilizes a protocol to evaluate the pulmonary arterial tree. All CT scans are performed using dose optimization technique as appropriate and may include automated exposure control or mA/KV adjustment according to patient size. FINDINGS: No pulmonary emboli are identified. The aorta as imaged shows no acute or suspicious finding. No pericardial thickening or effusion. No infiltrate or mass in the lung parenchyma. No pleural effusion or pleural thickening. No mediastinal or hilar suspicious masses. No chest wall mass or abnormal lymphadenopathy. There is a small 16 millimeter rounded subcutaneous mass in the upper chest just right of midline. This has not change from 2017. IMPRESSION: No pulmonary emboli identified. No other significant or suspicious findings.
[2019-05-05 11:02] LABS: Urine Blood NEGATIVE (NEG); Urine Glucose NEGATIVE (NEG); Urine Protein NEGATIVE (NEG)
--- NOTE | 2019-05-05 11:05 | ER ---
Nurse's Notes [facility] Name: Estella Mina Age: 48 yrs Sex: Female : 1970 Arrival Date: 05/05/2019 Time: 09:00 Bed 19 Private MD: Osito Justice S Diagnosis: Chest pain, unspecified;Essential (primary) hypertension;Obesity, unspecified;Anxiety disorder, unspecified Presentation: 05/05 09:08 Presenting complaint: Patient states: left sided chest pain described as pressure that em has been on and off for 1 week, reports SOB and nausea. Transition of care: patient was not received from another setting of care. Onset of symptoms was April 28, 2019. Risk Assessment: Do you want to hurt yourself or someone else? Patient reports no desire to harm self or others. Initial Sepsis Screen: Does the patient meet any 2 criteria? No. Patient's initial sepsis screen is negative. Does the patient have a suspected source of infection? No. Patient's initial sepsis screen is negative. Care prior to arrival: None. 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 - Social history:: Smoking status: Patient/guardian denies using tobacco. - Family history:: not pertinent. - Ebola Screening: : Patient negative for fever greater than or equal to 101.5 degrees Fahrenheit, and additional compatible Ebola Virus Disease symptoms Patient denies exposure to infectious person Patient denies travel to an Ebola-affected area in the 21 days before illness onset No symptoms or risks identified at this time. Screenin:17 Abuse screen: Denies threats or abuse. Denies injuries from another. Nutritional iw screening: No deficits noted. Tuberculosis screening: No symptoms or risk factors identified. Fall Risk IV access (20 points). Assessment: 09:11 General: Appears in no apparent distress. comfortable, Denies fever. Pain: Complains of em pain in anterior aspect of left upper chest Pain radiates to back Pain currently is 7 out of 10 on a pain scale. Pain began 1 week. Neuro: Level of Consciousness is awake, alert, obeys commands, Oriented to person, place, time, situation. Cardiovascular: Reports chest pain, nausea, Heart tones S1 S2 present Capillary refill < 3 seconds Patient's skin is warm and dry. Rhythm is sinus rhythm. Respiratory: Airway is patent Respiratory effort is even, unlabored, Respiratory pattern is regular, symmetrical. GI: Reports nausea, Patient currently denies vomiting. Derm: Skin is intact, is healthy with good turgor, Skin is pink, warm \\T\\ dry. Musculoskeletal: Capillary refill < 3 seconds, Range of motion: intact in all extremities. 10:10 Reassessment: Patient appears in no apparent distress at this time. Patient and/or iw family updated on plan of care and expected duration. Pain level reassessed. Patient is alert, oriented x 3, equal unlabored respirations, skin warm/dry/pink. pt c/o midsternal chest pain 710, Dr. Gonzalez notified, new orders given, pt medicated per MAR, VSS, call light within reach. 11:01 Reassessment: Patient appears in no apparent distress at this time. Patient and/or em family updated on plan of care and expected duration. Pain level reassessed. Patient is alert, oriented x 3, equal unlabored respirations, skin warm/dry/pink. nausea has improved, rates pain 4/10 Patient states feeling better. Patient states symptoms have improved. 11:20 Reassessment: US at bedside, pending results from US. em Vital Signs: 09:11 BP 138 / 102; Pulse 75; Resp 20; Temp 98.5; Pulse Ox 100% on R/A; Weight 144.7 kg; em Height 5 ft. 4 in. (162.56 cm); Pain 7; 09:26 BP 132 / 87; em 11:01 BP 123 / 71; Pulse 71; Resp 16; Pulse Ox 100% on R/A; Pain 4/10; em 11:53 BP 135 / 81; Pulse 67; Resp 18; Pulse Ox 100% on R/A; Pain 5/10; em 09:11 Body Mass Index 54.76 (144.70 kg, 162.56 cm) em ED Course: 08:58 Shree Gonzalez MD is Attending Physician. angela 09:00 Patient arrived in ED. ag5 09:00 Osito Justice MD is Private Physician. ag5 09:03 Camden Tamayo LVN is Primary Nurse. em 09:11 Arm band placed on. em 09:11 Patient has correct armband on for positive identification. Placed in gown. Bed in low em position. Call light in reach. Side rails up X2. cardiac monitor technician on. Pulse ox on. NIBP on. 09:15 Triage completed. iw 09:22 XRAY Chest (1 view) In Process Unspecified. EDMS 09:27 Initial lab(s) drawn, by ED staff, sent to lab. Inserted saline lock: 22 gauge in left em antecubital area, using aseptic technique. Blood collected. Patient maintains SpO2 saturation greater than 95% on room air. 10:33 Radiology exam delayed due to tech with OUT pt exam, no transporters to help. sg3 10:37 CT completed. Patient tolerated procedure well. Patient moved back from CT. mw3 10:45 CT Chest For PE Angio In Process Unspecified. EDMS 11:04 Osito Justice MD is Referral Physician. angela 11:04 Chica Diaz MD is Referral Physician. angela 11:38 Ultrasound completed. Patient tolerated well. sg3 11:42 US Extremity Venous W Compression Salvador In Process Unspecified. EDMS 12:05 No provider procedures requiring assistance completed. IV discontinued, intact, em bleeding controlled, No redness/swelling at site. Pressure dressing applied. Administered Medications: 09:24 Drug: Aspirin Chewable Tablet 162 mg Route: PO; em 09:47 Follow up: Response: No adverse reaction em 09:47 Drug: NS 0.9% 1000 ml Route: IV; Rate: 125 ml/hr; Site: left antecubital; em 09:47 Not Given (Physician Discretion): ToPROL XL (metoprolol SUCCINATE XL) 50 mg PO once em 10:01 Drug: Zofran 4 mg Route: IVP; Site: left antecubital; iw 11:01 Follow up: Response: No adverse reaction; Nausea is decreased em 10:03 Not Given (Duplicate Order): Zofran 4 mg IVP once; over 2 minutes iw 10:14 Drug: morphine 4 mg Route: IVP; Site: left antecubital; iw 11:01 Follow up: Response: No adverse reaction; Pain is decreased em Outcome: 11:04 Discharge ordered by . angela 12:05 Discharged to home ambulatory, with family. em 12:05 Condition: good 12:05 Discharge instructions given to Instructed on discharge instructions, follow up and referral plans. medication usage, Demonstrated understanding of instructions, follow-up care, medications, Prescriptions given X 2. 12:13 Patient left the ED. em Signatures: Dispatcher [employer] EDShree Reynaga MD MD cha Munoz, Camden, ACQUISITION MARKETING COORDINATOR ACQUISITION MARKETING COORDINATOR em Elisha Kelly, LAYNE RN Erlinda Sam sg3 Mayra Reed 3 Alverto Phoenix ag5 Corrections: (The following items were deleted from the chart) 09:47 09:46 ToPROL XL (metoprolol SUCCINATE XL) 50 mg PO em em 10:34 10:33 Ultrasound completed. sg3 sg3
--- NOTE | 2019-05-05 11:05 | EDPHYS ---
Physician Documentation [facility] Name: Estella Mina Age: 48 yrs Sex: Female : 1970 Arrival Date: 05/05/2019 Time: 09:00 Bed 19 Private MD: Osito Justice S ED Physician Shree Gonzalez HPI: 05/05 09:00 This 48 yrs old Female presents to ER via Unassigned with complaints of Chest angela Pain. 09:00 The patient or guardian reports chest pain that is located primarily in the substernal angela area. Onset: 3 day(s) ago. The pain does not radiate. Associated signs and symptoms: Pertinent positives: shortness of breath. The chest pain is described as a pressure. Modifying factors: The symptoms are alleviated by nothing. the symptoms are aggravated by nothing. The patient has experienced similar episodes in the past, a few times. 09:02 Duration: The patient or guardian reports multiple episodes, that wax and wane. angela Severity of pain: At its worst the pain was mild in the emergency department the pain has improved. 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 - Social history:: Smoking status: Patient/guardian denies using tobacco. - Family history:: not pertinent. - Ebola Screening: : Patient negative for fever greater than or equal to 101.5 degrees Fahrenheit, and additional compatible Ebola Virus Disease symptoms Patient denies exposure to infectious person Patient denies travel to an Ebola-affected area in the 21 days before illness onset No symptoms or risks identified at this time. ROS: 09:00 Constitutional: Negative for fever, chills, and weight loss, Eyes: Negative for injury, angela pain, redness, and discharge, ENT: Negative for injury, pain, and discharge, Neck: Negative for injury, pain, and swelling, Respiratory: Negative for shortness of breath, cough, wheezing, and pleuritic chest pain, Abdomen/GI: Negative for abdominal pain, nausea, vomiting, diarrhea, and constipation, Back: Negative for injury and pain, : Negative for injury, bleeding, discharge, and swelling, MS/Extremity: Negative for injury and deformity, Skin: Negative for injury, rash, and discoloration, Neuro: Negative for headache, weakness, numbness, tingling, and seizure, Psych: Negative for depression, anxiety, suicide ideation, homicidal ideation, and hallucinations, Allergy/Immunology: Negative for hives, rash, and allergies, Endocrine: Negative for neck swelling, polydipsia, polyuria, polyphagia, and marked weight changes, Hematologic/Lymphatic: Negative for swollen nodes, abnormal bleeding, and unusual bruising. 09:00 Cardiovascular: Positive for chest pain. Exam: 09:00 Constitutional: This is a well developed, well nourished patient who is awake, alert, angela and in no acute distress. Head/Face: Normocephalic, atraumatic. Eyes: Pupils equal round and reactive to light, extra-ocular motions intact. Lids and lashes normal. Conjunctiva and sclera are non-icteric and not injected. Cornea within normal limits. Periorbital areas with no swelling, redness, or edema. ENT: Nares patent. No nasal discharge, no septal abnormalities noted. Tympanic membranes are normal and external auditory canals are clear. Oropharynx with no redness, swelling, or masses, exudates, or evidence of obstruction, uvula midline. Mucous membranes moist. Neck: Trachea midline, no thyromegaly or masses palpated, and no cervical lymphadenopathy. Supple, full range of motion without nuchal rigidity, or vertebral point tenderness. No Meningismus. Chest/axilla: Normal chest wall appearance and motion. Nontender with no deformity. No lesions are appreciated. Cardiovascular: Regular rate and rhythm with a normal S1 and S2. No gallops, murmurs, or rubs. Normal PMI, no JVD. No pulse deficits. Respiratory: Lungs have equal breath sounds bilaterally, clear to auscultation and percussion. No rales, rhonchi or wheezes noted. No increased work of breathing, no retractions or nasal flaring. Abdomen/GI: Soft, non-tender, with normal bowel sounds. No distension or tympany. No guarding or rebound. No evidence of tenderness throughout. Back: No spinal tenderness. No costovertebral tenderness. Full range of motion. Skin: Warm, dry with normal turgor. Normal color with no rashes, no lesions, and no evidence of cellulitis. MS/ Extremity: Pulses equal, no cyanosis. Neurovascular intact. Full, normal range of motion. Neuro: Awake and alert, GCS 15, oriented to person, place, time, and situation. Cranial nerves II-XII grossly intact. Motor strength 5/5 in all extremities. Sensory grossly intact. Cerebellar exam normal. Normal gait. Psych: Awake, alert, with orientation to person, place and time. Behavior, mood, and affect are within normal limits. 09:00 Musculoskeletal/extremity: DVT Exam: No signs of deep vein thrombosis. no pain, no swelling, no tenderness, negative Homans' sign noted on exam, no appreciated bluish discoloration, no erythema, no increased warmth. Vital Signs: 09:11 BP 138 / 102; Pulse 75; Resp 20; Temp 98.5; Pulse Ox 100% on R/A; Weight 144.7 kg; em Height 5 ft. 4 in. (162.56 cm); Pain 7/10; 09:26 BP 132 / 87; em 11:01 BP 123 / 71; Pulse 71; Resp 16; Pulse Ox 100% on R/A; Pain 4/10; em 11:53 BP 135 / 81; Pulse 67; Resp 18; Pulse Ox 100% on R/A; Pain 5/10; em 09:11 Body Mass Index 54.76 (144.70 kg, 162.56 cm) em MDM: 09:03 Data reviewed: vital signs, nurses notes, lab test result(s), EKG, radiologic studies, angela plain films. 09:03 Patient medically screened. [facility] 05/05 09:00 Order name: Basic Metabolic Panel; Complete Time: 10:28 [facility] 05/05 09:00 Order name: CBC with Diff; Complete Time: 10:02 [facility] 05/05 09:00 Order name: LFT's; Complete Time: 10:28 [facility] 05/05 09:00 Order name: Magnesium; Complete Time: 10:28 [facility] 05/05 09:00 Order name: NT PRO-BNP; Complete Time: 10:28 [facility] 05/05 09:00 Order name: PT-INR; Complete Time: 10:02 [facility] 05/05 09:00 Order name: Troponin (emerg Dept Use Only); Complete Time: 10:28 [facility] 05/05 09:00 Order name: XRAY Chest (1 view); Complete Time: 09:59 [facility] 05/05 09:00 Order name: D-Dimer; Complete Time: 10:02 [facility] 05/05 09:00 Order name: UDS; Complete Time: 11:00 [facility] 05/05 09:59 Order name: CT Chest For PE Angio; Complete Time: 11:00 [facility] 05/05 09:59 Order name: US Extremity Venous W Compression Salvador [facility] 05/05 10:34 Order name: Urine Dipstick--Ancillary (enter results) em1 05/05 09:00 Order name: EKG; Complete Time: 09:05 [facility] 05/05 09:00 Order name: Cardiac monitoring; Complete Time: 09:14 [facility] 05/05 09:00 Order name: EKG - Nurse/Tech; Complete Time: 09:14 [facility] 05/05 09:00 Order name: IV Saline Lock; Complete Time: 09:47 [facility] 05/05 09:00 Order name: Labs collected and sent; Complete Time: 09:14 [facility] 05/05 09:00 Order name: O2 Per Protocol; Complete Time: 09:14 [facility] 05/05 09:00 Order name: O2 Sat Monitoring; Complete Time: 09:14 [facility] Administered Medications: 09:24 Drug: Aspirin Chewable Tablet 162 mg Route: PO; em 09:47 Follow up: Response: No adverse reaction em 09:47 Drug: NS 0.9% 1000 ml Route: IV; Rate: 125 ml/hr; Site: left antecubital; em 09:47 Not Given (Physician Discretion): ToPROL XL (metoprolol SUCCINATE XL) 50 mg PO once em 10:01 Drug: Zofran 4 mg Route: IVP; Site: left antecubital; iw 11:01 Follow up: Response: No adverse reaction; Nausea is decreased em 10:03 Not Given (Duplicate Order): Zofran 4 mg IVP once; over 2 minutes iw 10:14 Drug: morphine 4 mg Route: IVP; Site: left antecubital; iw 11:01 Follow up: Response: No adverse reaction; Pain is decreased em Disposition: 05/05/19 11:04 Discharged to Home. Impression: Chest pain, unspecified, Essential (primary) hypertension, Obesity, unspecified, Anxiety disorder, unspecified. - Condition is Stable. - Discharge Instructions: Nonspecific Chest Pain, Hypertension, Obesity, Adult, Nonspecific Chest Pain, Kigf-gi-[id number], Hypertension, Gdyi-ep-Nupq, Aspirin and Your Heart, Managing Your Hypertension. - Prescriptions for Toprol XL 25 mg Oral Tablet - take 1 tablet by ORAL route once daily; 20 tablet. Pepcid 20 mg Oral Tablet - take 1 tablet by ORAL route every 12 hours for 10 days; 20 tablet. - Medication Reconciliation Form, Thank You Letter, Antibiotic Education, Prescription Opioid Use form. - Follow up: Osito Justice; When: 2 - 3 days; Reason: Recheck today's complaints, Continuance of care, Re-evaluation by your physician. Follow up: Chica Diaz; When: 2 - 3 days; Reason: Recheck today's complaints, Continuance of care, Re-evaluation by your physician. - Problem is new. - Symptoms have improved. Signatures: Dispatcher [employer] EDShree Reynaga MD MD cha Munoz, Edgar, CRM BUSINESS ANALYST CRM BUSINESS ANALYST Elisha Blair RN RN iw Corrections: (The following items were deleted from the chart) 12:13 11:04 05/05/2019 11:04 Discharged to Home. Impression: Chest pain, unspecified; em Essential (primary) hypertension; Obesity, unspecified; Anxiety disorder, unspecified. Condition is Stable. Discharge Instructions: Nonspecific Chest Pain, Hypertension, Obesity, Adult, Nonspecific Chest Pain, Phgr-xe-Tnmw, Hypertension, Fqao-xy-Btrh, Aspirin and Your Heart, Managing Your Hypertension. Prescriptions for Toprol XL 25 mg Oral Tablet - take 1 tablet by ORAL route once daily; 20 tablet, Pepcid 20 mg Oral Tablet - take 1 tablet by ORAL route every 12 hours for 10 days; 20 tablet. and Forms are Medication Reconciliation Form, Thank You Letter, Antibiotic Education, Prescription Opioid Use. Follow up: Osito Justice; When: 2 - 3 days; Reason: Recheck today's complaints, Continuance of care, Re-evaluation by your physician. Follow up: Chica Diaz; When: 2 - 3 days; Reason: Recheck today's complaints, Continuance of care, Re-evaluation by your physician. Problem is new. Symptoms have improved. angela
--- NOTE | 2019-05-05 11:44 | RAD REPORT ---
EXAM DESCRIPTION: US - Extrem Venous W Compress Salvador - 05/05/2019 11:39 am CLINICAL HISTORY: Chest pain, bilateral leg pain COMPARISON: None. TECHNIQUE: Real-time sonographic evaluation of the bilateral lower extremity common femoral, superfi cial femoral, popliteal and posterior tibial veins was performed. FINDINGS: Normal compressibility, flow augmentation, phasic flow and spontaneous flow are identified in the left and right lower extremity common femoral, superficial femoral, popliteal and posterior t ibial veins. No intraluminal filling defects seen. IMPRESSION: No DVT in either lower extremity.
[2019-05-05 12:26] VITALS: TEMP 98.5; O2SAT 100
[2019-05-05 12:30] VITALS: BP 135/81
--- NOTE | 2019-05-06 07:37 | EKG ---
Test Date: 2019-05-05 Test Time: 09:12:43 Tape Librarian: LEONEL MEASUREMENT RESULTS: Intervals: Rate: 74 NE: 166 QRSD: 90 QT: 384 QTc: 426 [place]: P: 51 NE: 166 QRS: 5 T: 23 INTERPRETIVE STATEMENTS: Normal sinus rhythm Normal ECG Compared to ECG 05/04/2019 01:14:40 Myocardial infarct finding no longer present Electronically Signed On 05-06-19 07:36:06 CDT by Bennett Minaya
== END 2019-05-05 12:13 | disposition home or self-care (01) ==
LOC: ER 08:56
DX: I10 Essential (primary) hypertension (principal); F41.9 Anxiety disorder, unspecified; E66.9 Obesity, unspecified; F32.9 Major depressive disorder, single episode, unspecified
CPT/HCPCS: 36415; 71045; 71275; 80048; 80076; 80307; 81003; 83735; 83880; 84484; 85025; 85379; 85610; 93005; 93970; 96374; 96375; 99285; J2405; J7030; Q9967

== ENCOUNTER 2021-01-13 23:24 | Emergency (ER) | payer SELFPAY ==
--- OUTSIDE RECORDS SUMMARY | 2021-01-13 23:27 | XMS REPORT | Continuity of Care Document ---
:1970 Author Organization [facility] t Address [address] [place] [address] Care Team Providers Name Role Phone Vinh KUHN Attending Clinician Doctor Unassigned, Name Attending Clinician Unavailable Problems Condition Condition Condition Status Onset Resolution Last Treating Co mments Source Name Details Category Date Date Treatment Clinician Date Primary Primary Diagnosis [facility] left knee left knee l [facility] Pain in Pain in Diagnosis [facility] Allergies, Adverse Reactions, Alerts This patient has no known allergies or adverse reactions. Medications Ordered Filled Start Stop Current Ordering Indication Dosage Frequency Signature Comments Components Source Medication Medication Date Date Medication? Clinician (SIG) Name Name baclofen baclofen Yes Yevgeniy 1/[address] [facility] - 00:00: [facility] 00 l Out[facility] ent Clinics Lorazepam Lorazepam Yes Yevgeniy (Schedule [facility] - TAKE ONE [facility] (1) l TABLET(S) Outpati BY MOUTH ent TWICE A Clinics DAY NEEDED FOR ANXIETY OR AGITATION. Zolpidem Zolpidem Yes Yevgeniy (Schedule [facility] Tartrate Tartrate [facility]) Jesus es - TAKE ONE [facility] (1) l TABLET(S) Outpati BY MOUTH ent ONCE A DAY Clinics AT BEDTIME NEEDED FOR INSOMNIA. Topiramate Topiramate Yes Yevgeniy TAKE ONE [facility] (1) [facility] - TABLET(S) [facility] BY MOUTH l ONCE A Outpati DAY. ent Clinics Hydrocodone Hydrocodone Yes Yevgeniy (Schedule [facility] -Acetaminop -Acetaminop [facility] II [facility]) [facility] - hen hen TAKE ONE [facility] (1) l TABLET(S) Outpati BY MOUTH ent EVERY SIX Clinics HOURS NEEDED FOR PAIN. Citalopram Citalopram Yes Yevgeniy TAKE ONE [facility] Hydrobromid Hydrobromid [facility] (1) L [facility] - e e TABLET(S) [facility] BY MOUTH l ONCE A Outpati DAY. ent Clinics Indomethaci Indomethaci Yes Yevgeniy TAKE ONE [facility] n [facility] (1) [facility] - CAPSULE(S) [facility] BY MOUTH l THREE Outpati TIMES A ent DAY WITH Clinics MEALS. Procedures This patient has no known procedures. Encounters Start End Encounter Admission Attending Care Care Encounter Source Date/Time Date/Time Type Type Clinicians Facility Department ID 2020-12-21 2020-12-21 [id number] 00:00:00 00:00:00 [facility] [id number] [place] [id number] [place] [id number] [place] [id number] [address] 2020-12-16 2020-12-16 [facility] [id number] 08:38:56 08:53:56 Visit [facility] [id number] [place] [id number] [place] [id number] [place] [address] [address] 2020-12-16 2020-12-16 Orders Doctor ROMEO [id number] 00:00:00 00:00:00 Only Unassigned, DOMENIC [id number] [place] [facility] [id number] 2019-12-02 2019-12-02 [facility] [id number] [facility] 10[facility]00:00 10:00:[facility] 2019-11-25 2019-11-25 Outpatient Mirtha Craig [id number] [facility] 09:45:00 09:45:00 [facility] 2019-11-14 2019-11-14 Outpatient Mirtha Craig [id number] [facility] 10:29:00 10:29:00 [facility] 2019-11-12 2019-11-12 Outpatient Mirtha Craig [id number] [facility] 14:27:00 14:27:00 [facility] 2019-11-07 2019-11-07 Outpatient Mirtha Craig [id number] [facility] 08:00:00 08:00:00 [facility] Results This patient has no known results.
[2021-01-13 23:41] LABS: Urine Blood Negative (Negative); Urine Glucose Negative (Negative); Urine Protein 1+ (Negative); Urine Specific Gravity >=1.030 (1.005-1.030); Urine pH 5.5 (5.0-7.0)
[2021-01-13 23:57] LABS: Absolute Lymphocytes (CBC) 3.3 K/uL (0.7-4.9); Basophils % 0.7 % (0-1.3); Hematocrit 49.1 % (36.0-45.0); Lymphocytes % 43.9 % (15.3-44.8); MPV 11.5 fL (7.6-11.3); RBC Red Blood Cell Count 5.31 M/uL (3.86-4.86)
[2021-01-13] MEDS ORDERED: ONDANSETRON 4 MG/2 ML VIAL ONE (23:58)
[2021-01-13] MEDS ORDERED: NA CHLORIDE 0.9% 1,000 ML ONE (23:58)
[2021-01-13] MEDS ORDERED: MORPHINE 4 MG/ML SYR ONE (23:58)
[2021-01-14] MEDS ORDERED: NA CHLORIDE 0.9% 1,000 ML ONE (00:04)
[2021-01-14] MEDS ORDERED: FAMOTIDINE 20 MG/2 ML VIAL IV ONE (00:04)
[2021-01-14 00:07] LABS: Albumin 3.4 g/dL (3.4-5.0); Bilirubin Direct 0.2 mg/dL (0-0.2); Bilirubin Total 0.4 mg/dL (0.2-1.0); Potassium 3.4 mmol/L (3.5-5.1); Protein, Total 7.4 g/dL (6.4-8.2)
[2021-01-14 00:35] LABS: Urine Specific Gravity/Preg >1.030 (1.005-1.030)
--- NOTE | 2021-01-14 01:33 | EDPHYS ---
Physician Documentation [facility] Name: Estella Mina Age: 50 yrs Sex: Female : 1970 Arrival Date: 01/13/2021 Time: 23:27 Bed 7 Private MD: Shree Malcolm HPI: 01/13 23:46 This 50 yrs old Female presents to ER via EMS with complaints of Abdominal angela Pain. 23:46 The patient presents with abdominal pain in the upper abdomen, in the lower abdomen, angela abdominal distention in the upper abdomen, in the lower abdomen. Onset: The symptoms/episode began/occurred 5 day(s) ago. The patient presents to the emergency department with nausea, vomiting, diarrhea, abdominal pain, of the right upper quadrant, left upper quadrant, right lower quadrant and left lower quadrant. Onset: The symptoms/episode began/occurred 5 day(s) ago. Possible causes: unknown. The symptoms are aggravated by nothing. The symptoms are alleviated by nothing. Associated signs and symptoms: The patient has no apparent associated signs or symptoms. The symptoms do not radiate. Historical: - Allergies: 23:29 No Known Allergies; rv - PMHx: 23:29 "Blood clot in R lung"; "enlarged heart"; Anxiety; Depression; Migraines; mitral valve rv prolapse; - PSHx: 23:29 None; rv - Immunization history:: Adult Immunizations up to date, Client reports receiving the 2nd dose of the Covid vaccine, Date received: January 08, 2021. - Social history:: Smoking status: Patient denies any tobacco usage or history of. - Family history:: not pertinent. ROS: 23:46 Constitutional: Negative for fever, chills, and weight loss, Eyes: Negative for injury, angela pain, redness, and discharge, ENT: Negative for injury, pain, and discharge, Neck: Negative for injury, pain, and swelling, Cardiovascular: Negative for chest pain, palpitations, and edema, Respiratory: Negative for shortness of breath, cough, wheezing, and pleuritic chest pain, Back: Negative for injury and pain, : Negative for injury, bleeding, discharge, and swelling, MS/Extremity: Negative for injury and deformity, Skin: Negative for injury, rash, and discoloration, Neuro: Negative for headache, weakness, numbness, tingling, and seizure, Psych: Negative for depression, anxiety, suicide ideation, homicidal ideation, and hallucinations, Allergy/Immunology: Negative for hives, rash, and allergies, Endocrine: Negative for neck swelling, polydipsia, polyuria, polyphagia, and marked weight changes, Hematologic/Lymphatic: Negative for swollen nodes, abnormal bleeding, and unusual bruising. 23:46 Abdomen/GI: Positive for abdominal pain, nausea and vomiting, diarrhea, of the right upper quadrant, left upper quadrant, right lower quadrant and left lower quadrant. Exam: 23:46 Constitutional: This is a well developed, well nourished patient who is awake, alert, angela and in no acute distress. Head/Face: Normocephalic, atraumatic. Eyes: Pupils equal round and reactive to light, extra-ocular motions intact. Lids and lashes normal. Conjunctiva and sclera are non-icteric and not injected. Cornea within normal limits. Periorbital areas with no swelling, redness, or edema. ENT: Nares patent. No nasal discharge, no septal abnormalities noted. Tympanic membranes are normal and external auditory canals are clear. Oropharynx with no redness, swelling, or masses, exudates, or evidence of obstruction, uvula midline. Mucous membranes moist. Neck: Trachea midline, no thyromegaly or masses palpated, and no cervical lymphadenopathy. Supple, full range of motion without nuchal rigidity, or vertebral point tenderness. No Meningismus. Chest/axilla: Normal chest wall appearance and motion. Nontender with no deformity. No lesions are appreciated. Cardiovascular: Regular rate and rhythm with a normal S1 and S2. No gallops, murmurs, or rubs. Normal PMI, no JVD. No pulse deficits. Respiratory: Lungs have equal breath sounds bilaterally, clear to auscultation and percussion. No rales, rhonchi or wheezes noted. No increased work of breathing, no retractions or nasal flaring. Abdomen/GI: Soft, non-tender, with normal bowel sounds. No distension or tympany. No guarding or rebound. No evidence of tenderness throughout. Back: No spinal tenderness. No costovertebral tenderness. Full range of motion. Skin: Warm, dry with normal turgor. Normal color with no rashes, no lesions, and no evidence of cellulitis. MS/ Extremity: Pulses equal, no cyanosis. Neurovascular intact. Full, normal range of motion. Neuro: Awake and alert, GCS 15, oriented to person, place, time, and situation. Cranial nerves II-XII grossly intact. Motor strength 5/5 in all extremities. Sensory grossly intact. Cerebellar exam normal. Normal gait. Psych: Awake, alert, with orientation to person, place and time. Behavior, mood, and affect are within normal limits. 23:46 Musculoskeletal/extremity: DVT Exam: No signs of deep vein thrombosis. no pain, no swelling, no tenderness, negative Homans' sign noted on exam, no appreciated bluish discoloration, no erythema, no increased warmth. 01/14 00:32 ECG was reviewed by the Attending Physician. angela Vital Signs: 01/13 23:27 BP 142 / 96; Pulse 97; Resp 18; Temp 98.8; Pulse Ox 98% on R/A; Weight 156.49 kg; rv Height 5 ft. 4 in. (162.56 cm); Pain 5/10; 01/14 00:52 Pulse 91; Resp 19; Pulse Ox 96% on R/A; rv 02:00 BP 138 / 86; Pulse 89; Resp 18; Pulse Ox 98% ; rv 03:00 BP 141 / 88; Pulse 86; Resp 18; Pulse Ox 97% on R/A; rv 01/13 23:27 Body Mass Index 59.22 (156.49 kg, 162.56 cm) rv MDM: 01/13 23:27 Patient medically screened. angela 23:48 Differential diagnosis: gastritis, cholecystitis, pancreatitis, diverticulitis, bowel angela obstruction, cholecystitis, Cholelithiasis, gastritis, non-specific abd pain, pancreatitis, Peptic Ulcer Disease, urinary tract infection. Data reviewed: vital signs, nurses notes, lab test result(s), EKG, radiologic studies, plain films. Data interpreted: front desk monitor: rate is 97 beats/min, rhythm is regular, Pulse oximetry: on room air is 97 %. Test interpretation: by ED physician or midlevel provider: ECG, plain radiologic studies. Counseling: I had a detailed discussion with the patient and/or guardian regarding: the historical points, exam findings, and any diagnostic results supporting the discharge/admit diagnosis, lab results, radiology results. 01/13 23:32 Order name: Basic Metabolic Panel; Complete Time: 01:31 rv 01/13 23:32 Order name: CBC with Diff; Complete Time: : rv 01/13 23:32 Order name: Hepatic Function; Complete Time: rv 01/13 23:32 Order name: Lipase; Complete Time: rv 01/13 23:40 Order name: Urine Dipstick-Ancillary; Complete Time: 23:50 EDMS 01/13 23:42 Order name: Urine --Ancillary (enter results) mw2 01/13 23:42 Order name: Urine --Ancillary; Complete Time: 01:31 EDMS 01/13 23:50 Order name: Abdomen with Erect XRAY angela 01/13 23:32 Order name: IV Saline Lock; Complete Time: 23:43 rv 01/13 23:32 Order name: Labs collected and sent; Complete Time: 23:43 rv 01/13 23:34 Order name: Urine Dipstick-Ancillary (obtain specimen); Complete Time: 00:02 rr5 01/13 23:34 Order name: Urine Test (obtain specimen); Complete Time: 00:02 rr 01/13 23:42 Order name: EKG; Complete Time: 23:42 [facility] 01/13 23:42 Order name: EKG - Nurse/Tech; Complete Time: 00:50 [facility] EC/22 00:32 Rate is 96 beats/min. Rhythm is regular. QRS [place] is Normal. ID interval is normal. QRS angela interval is normal. QT interval is normal. No Q waves. T waves are Normal. No ST changes noted. Clinical impression: NSR w/ Non-specific ST/T Changes and No evidence of ischemia. Interpreted by me. Reviewed by me. Administered Medications: 01/13 23:44 Drug: NS 0.9% 1000 ml Route: IV; Rate: 1 bolus; Site: right antecubital; rv 01/14 03:06 Follow up: IV Status: Completed infusion; IV Intake: 1000ml rv 01/13 23:44 Drug: morphine 4 mg Route: IVP; Site: right antecubital; rv 01/14 03:06 Follow up: Response: No adverse reaction; Marked relief of symptoms; Pain is decreased; rv RASS: Alert and Calm (0) 01/13 23:44 Drug: Zofran (Ondansetron) 4 mg Route: IVP; Site: right antecubital; rv 01/14 03:06 Follow up: Response: No adverse reaction rv 01/13 23:51 Drug: Pepcid (famotidine) 20 mg Route: IVP; Site: right antecubital; rv 01/14 03:06 Follow up: Response: No adverse reaction rv 01/13 23:51 Drug: NS 0.9% 1000 ml Route: IV; Rate: 1 bolus; Site: right antecubital; rv 01/14 03:06 Follow up: IV Status: Completed infusion; IV Intake: 1000ml rv 01:41 Drug: Potassium Effervescent Tablet 25 mEq Route: PO; rr5 03:05 Follow up: Response: No adverse reaction rv 01:41 Drug: Cipro (ciprofloxacin) 400 mg Volume: 200 ml; Route: IVPB; Infused Over: 60 mins; rr5 Site: right antecubital; 03:07 Follow up: IV Status: Completed infusion; IV Intake: 200ml rv Disposition: 01/14/21 01:32 Discharged to Home. Impression: Vomiting, Diarrhea, unspecified, Abdominal tenderness, Hypokalemia. - Condition is Stable. - Discharge Instructions: Abdominal Pain, Adult, Food Choices to Help Relieve Diarrhea, Adult, Diarrhea, Adult, Potassium Content of Foods, Nausea and Vomiting, Adult, Nausea and Vomiting, Adult, Arii-wr-Zcjg, Abdominal Pain, Adult, Ulde-yh-Jpyb, Diarrhea, Adult, Qapp-rb-Zeiq, Hypokalemia. - Prescriptions for Bentyl 20 mg Oral Tablet - take 1 tablet by ORAL route every 6 hours As needed; 20 tablet. Pepcid 20 mg Oral Tablet - take 1 tablet by ORAL route every 12 hours for 10 days; 20 tablet. Zofran 4 mg Oral Tablet - take 1 tablet by ORAL route every 12 hours As needed; 20 tablet. Phenergan 25 mg Rectal Suppository - insert 1 suppository by RECTAL route every 6 hours As needed; 20 suppository. Cipro 500 mg Oral Tablet - take 1 tablet by ORAL route every 12 hours for 5 days; 9 tablet. - Medication Reconciliation Form, Thank You Letter, Antibiotic Education, Prescription Opioid Use form. - Follow up: Private Physician; When: 2 - 3 days; Reason: Recheck today's complaints, Continuance of care, Re-evaluation by your physician. Follow up: Carlito Lopez; When: 2 - 3 days; Reason: Recheck today's complaints, Re-evaluation by your physician. - Problem is new. - Symptoms have improved. Signatures: Dispatcher [employer] Shree Mir MD MD cha Vicente, Ronaldo, RN RN rv Arvin Marshall RN RN rr5 Corrections: (The following items were deleted from the chart) 03:08 01:32 01/14/2021 01:32 Discharged to Home. Impression: Vomiting; Diarrhea, unspecified; rv Abdominal tenderness; Hypokalemia. Condition is Stable. Discharge Instructions: Abdominal Pain, Adult, Food Choices to Help Relieve Diarrhea, Adult, Diarrhea, Adult, Nausea and Vomiting, Adult, Nausea and Vomiting, Adult, Nwbg-ne-Hrny, Abdominal Pain, Adult, Mawx-hk-Yjzh, Diarrhea, Adult, Ynbl-xe-Wanv. Prescriptions for Bentyl 20 mg Oral Tablet - take 1 tablet by ORAL route every 6 hours As needed; 20 tablet, Pepcid 20 mg Oral Tablet - take 1 tablet by ORAL route every 12 hours for 10 days; 20 tablet, Zofran 4 mg Oral Tablet - take 1 tablet by ORAL route every 12 hours As needed; 20 tablet, Phenergan 25 mg Rectal Suppository - insert 1 suppository by RECTAL route every 6 hours As needed; 20 suppository. and Forms are Medication Reconciliation Form, Thank You Letter, Antibiotic Education, Prescription Opioid Use. Follow up: Private Physician; When: 2 - 3 days; Reason: Recheck today's complaints, Continuance of care, Re-evaluation by your physician. Follow up: Carlito Lopez; When: 2 - 3 days; Reason: Recheck today's complaints, Re-evaluation by your physician. Problem is new. Symptoms have improved. angela
--- NOTE | 2021-01-14 01:33 | ER ---
Nurse's Notes [facility] Name: Estella Mina Age: 50 yrs Sex: Female : 1970 Arrival Date: 01/13/2021 Time: 23:27 Bed 7 Private MD: Diagnosis: Vomiting;Diarrhea, unspecified;Abdominal tenderness;Hypokalemia Presentation: 01/13 23:27 Chief complaint: EMS states: PATIENT HAD SECOND DOSE OF COVID VACCINE LAST MONDAY AND rv ATE VIRGEN'S ON THE SAME DAY, MONDAY WHOLE FAMILY GOT SICK, NAUSEA, VOMITING AND ABDOMINAL PAIN, DENIES FEVER. PAIN IS 5/10. Coronavirus screen: Client denies travel out of the [place] in the last 14 days. Ebola Screen: No symptoms or risks identified at this time. Initial Sepsis Screen: Does the patient meet any 2 criteria? No. Patient's initial sepsis screen is negative. Does the patient have a suspected source of infection? No. Patient's initial sepsis screen is negative. Risk Assessment: Do you want to hurt yourself or someone else? Patient reports no desire to harm self or others. Onset of symptoms was January 13, 2021. 23:27 Method Of Arrival: EMS: [facility] rv 23:27 Acuity: NATHANAEL 3 rv Triage Assessment: 23:29 General: Appears uncomfortable, Behavior is calm, cooperative. Pain: Complains of pain rv in abdomen Pain currently is 5 out of 10 on a pain scale. EENT: No signs and/or symptoms were reported regarding the EENT system. Neuro: Level of Consciousness is awake, alert, obeys commands, Oriented to person, place, time, situation. Cardiovascular: Patient's skin is warm and dry. Respiratory: Airway is patent Respiratory effort is even, unlabored. GI: Abdomen is round non-distended. Derm: Skin is intact. Historical: - Allergies: 23:29 No Known Allergies; rv - PMHx: 23:29 "Blood clot in R lung"; "enlarged heart"; Anxiety; Depression; Migraines; mitral valve rv prolapse; - PSHx: 23:29 None; rv - Immunization history:: Adult Immunizations up to date, Client reports receiving the 2nd dose of the Covid vaccine, Date received: January 08, 2021. - Social history:: Smoking status: Patient denies any tobacco usage or history of. - Family history:: not pertinent. Screenin:31 Abuse screen: Denies threats or abuse. Denies injuries from another. Nutritional rv screening: No deficits noted. Tuberculosis screening: No symptoms or risk factors identified. Fall Risk None identified. Assessment: 23:31 GI: Bowel sounds present X 4 quads. Abd is soft and non tender X 4 quads. rv Vital Signs: 23:27 BP 142 / 96; Pulse 97; Resp 18; Temp 98.8; Pulse Ox 98% on R/A; Weight 156.49 kg; rv Height 5 ft. 4 in. (162.56 cm); Pain 5/10; 01/14 00:52 Pulse 91; Resp 19; Pulse Ox 96% on R/A; rv 02:00 BP 138 / 86; Pulse 89; Resp 18; Pulse Ox 98% ; rv 03:00 BP 141 / 88; Pulse 86; Resp 18; Pulse Ox 97% on R/A; rv 01/13 23:27 Body Mass Index 59.22 (156.49 kg, 162.56 cm) rv ED Course: 01/13 23:27 Patient arrived in ED. rv 23:27 Shree Gonzalez MD is Attending Physician. angela 23:28 Triage completed. rv 23:31 Arm band placed on right wrist. Patient placed in the treatment room, on a stretcher, rv Patient notified of wait time. 23:31 Patient has correct armband on for positive identification. monitor worker on. Pulse rv ox on. NIBP on. 23:32 Arian Holt RN is Primary Nurse. rv 01/14 00:15 Inserted saline lock: 20 gauge in right antecubital area, using aseptic technique. rv Blood collected. 00:15 Initial lab(s) drawn, by al, sent to lab. EKG done, by ED staff, reviewed by Shree Gonzalez MD. 00:33 Abdomen with Erect XRAY In Process Unspecified. EDMS 01:31 Carlito Lopez MD is Referral Physician. angela 03:04 No provider procedures requiring assistance completed. rv 03:08 IV discontinued, intact, bleeding controlled, No redness/swelling at site. Pressure rv dressing applied. Administered Medications: 01/13 23:44 Drug: NS 0.9% 1000 ml Route: IV; Rate: 1 bolus; Site: right antecubital; rv 01/14 03:06 Follow up: IV Status: Completed infusion; IV Intake: 1000ml rv 01/13 23:44 Drug: morphine 4 mg Route: IVP; Site: right antecubital; rv 01/14 03:06 Follow up: Response: No adverse reaction; Marked relief of symptoms; Pain is decreased; rv RASS: Alert and Calm (0) 01/13 23:44 Drug: Zofran (Ondansetron) 4 mg Route: IVP; Site: right antecubital; rv 01/14 03:06 Follow up: Response: No adverse reaction rv 01/13 23:51 Drug: Pepcid (famotidine) 20 mg Route: IVP; Site: right antecubital; rv 01/14 03:06 Follow up: Response: No adverse reaction rv 01/13 23:51 Drug: NS 0.9% 1000 ml Route: IV; Rate: 1 bolus; Site: right antecubital; rv 01/14 03:06 Follow up: IV Status: Completed infusion; IV Intake: 1000ml rv 01:41 Drug: Potassium Effervescent Tablet 25 mEq Route: PO; rr5 03:05 Follow up: Response: No adverse reaction rv 01:41 Drug: Cipro (ciprofloxacin) 400 mg Volume: 200 ml; Route: IVPB; Infused Over: 60 mins; rr5 Site: right antecubital; 03:07 Follow up: IV Status: Completed infusion; IV Intake: 200ml rv Intake: 03:06 IV: 1000ml; Total: 1000ml. rv 03:06 IV: 1000ml; Total: 2000ml. rv 03:07 IV: 200ml; Total: 2200ml. rv Outcome: 01:32 Discharge ordered by MD. miller 03:08 Discharged to home ambulatory. rv 03:08 Condition: good 03:08 Discharge instructions given to patient, Instructed on discharge instructions, follow up and referral plans. medication usage, Demonstrated understanding of instructions, follow-up care, medications, Prescriptions given X 5 03:08 Patient left the ED. rv Signatures: Dispatcher [employer] EDShree Reynaga MD MD cha Vicente, Ronaldo, RN RN rv Arvin Marshall RN RN rr5
[2021-01-14] MEDS ORDERED: POTASSIUM 25 MEQ EFFERV TAB ONE (01:52)
[2021-01-14] MEDS ORDERED: CIPROFLOXACIN 400mg IV 400 MG/200 ML BAG IV ONE (01:55)
[2021-01-14 03:15] VITALS: TEMP 98.8
[2021-01-14 03:19] VITALS: BP 141/88; O2SAT 97
--- NOTE | 2021-01-14 07:46 | RAD REPORT ---
EXAM DESCRIPTION: RAD - Abdomen W Erect - 01/14/2021 12:33 am CLINICAL HISTORY: ABD PAIN Pain, nausea and vomiting patient associations with the second dose of COVID vaccine COMPARISON: No comparisons TECHNIQUE: Supine and upright views of the abdomen were obtained. FINDINGS: Bowel gas pattern is nonspecific with no obstruction, free air or pneumatosis. No abnormal calcifications. No soft tissue abnormality. Cholecystectomy clips are seen in the right upper quadr ant. No significant bony finding. Degenerative changes are present at the lumbosacral junction facet join ts. IMPRESSION: Negative two-view abdomen examination for acute finding.
== END 2021-01-14 03:08 | disposition home or self-care (01) ==
LOC: ER 23:24
DX: E87.6 Hypokalemia (principal); R11.10 Vomiting, unspecified; R19.7 Diarrhea, unspecified
CPT/HCPCS: 36415; 74019; 80048; 80076; 81003; 81025; 83690; 85025; 93005; 96361; 96365; 96375; 99285; J0744; J2405; J7030